=== PATIENT | male | born 1965 | race Caucasian/White ===

== ENCOUNTER 2018-04-24 19:34 | Emergency (ER) | payer BC, OTHER ==
[2018-04-24] MEDS ORDERED: HYDROmorphone 1 MG/ML Syringe IVPUSH ONE (20:03)
[2018-04-24] MEDS ORDERED: Ketorolac 30 MG/ML SDV IVPUSH STA (20:03)
[2018-04-24] MEDS ORDERED: Tamsulosin 0.4 MG Cap.ER PO ONE (20:03)
[2018-04-24] MEDS ORDERED: Ondansetron 4 MG/2 ML SDV IVPUSH ONE (20:03)
--- NOTE | 2018-04-24 20:10 | EDM.PDOC ---
ED HPI GENERAL MEDICAL PROBLEM - General Chief Complaint: Flank Pain Stated Complaint: PAIN IN SIDES Time Seen by Provider: 04/24/18 19:50 Source of Information: Reports: Patient, Family (Mother), RN Notes Reviewed History Limitations: Reports: Uncooperative - History of Present Illness INITIAL COMMENTS - FREE TEXT/NARRATIVE: Obtaining the patient's history was difficult, as the patient did not want to answer questions, and most of my questions were answered by his mother, including questions that she could not possibly know the answer to, such as the character of the patient's pain. According to the patient's mother, the patient developed right flank pain that radiates to his right lower quadrant around 19:10 this evening. The pain came on suddenly. The patient states that he cannot describe the character other than it "just hurts". There do not appear to be any identified modifiers, althought the patient stated that his right flank felt better if he put his hand under his right back while lying supine. No associated fever, nausea, vomiting, constipation, diarrhea, or urinary symptoms, however, the patient's mother states that his urine output has been decreased over the past 45 minutes. No prior similar symptoms. The patient has not taken any over-the- counter home remedies to try to treat his symptoms. The patient does not have a PCP (Mom stated that "He never goes to the doctor") , however, he is under the care of an Oncologist or Radiation Oncologist whose name they do not recall, for treatment of a posterior scalp skin cancer. The lesion was excised, and the patient received radiation therapy. They do not know the type or stage of the cancer. Right Flank Pain Score (Numeric/FACES): 9 - Related Data Allergies Allergy/AdvReac Type Severity Reaction Status Date / Time No Known Allergies Allergy Verified 04/24/18 19:49 Home Meds: Home Meds Acetaminophen/HYDROcodone [Bolivar 325-5 MG] 1 - 2 tab PO Q6H PRN #12 tablet 04/24 [Rx] Ondansetron [Zofran ODT] 1 tab PO Q8H PRN #10 tab.dis 04/24/18 [Rx] Tamsulosin HCl [Flomax] 1 cap PO QPM PRN #5 cap.er.24h 04/24/18 [Rx] Past Medical History Oncologic (Cancer) History: Reports: Other (See Below) (Posterior scalp skin cancer, s/p excision and RTx) - Past Surgical History Oncologic Surgical History: Reports: Other (See Below) (Posterior scalp cancer excised) Social & Family History - Family History Family Medical History: Noncontributory - Tobacco Use Smoking Status *Q: Current Every Day Smoker Years of Tobacco use: 36 Packs/Tins Daily: 0.5 Packs/Tins Daily Comment: Down from 1 ppd - Alcohol Use Alcohol Use History: No - Recreational Drug Use Recreational Drug Use: No - Living Situation & Occupation Living situation: Reports: , with Family (Parents) Occupation: Employed (Maintenance at [employer]) ED ROS GENERAL - Review of Systems Review Of Systems: ROS reveals no pertinent complaints other than HPI. ED EXAM, RENAL/ - Physical Exam Exam: See Below Exam Limited By: No Limitations General Appearance: Alert, WD/WN, Mild Distress (appears to be uncomfortable) Eye Exam: Bilateral Eye: EOMI, Normal Inspection Ears: Normal External Exam, Hearing Grossly Normal Nose: Normal Inspection Throat/Mouth: Normal Inspection, Normal Lips, Normal Voice, No Airway Compromise Head: Atraumatic, Other (posterior scalp alopecia) Neck: Normal Inspection, Full Range of Motion Respiratory/Chest: No Respiratory Distress, Lungs Clear, Normal Breath Sounds, No Accessory Muscle Use Cardiovascular: Normal Peripheral Pulses, Regular Rate, Rhythm, No Edema, No Gallop, No JVD, No Murmur, No Rub GI/Abdominal: Normal Bowel Sounds, Soft, Non-Tender (including the RLQ), No Organomegaly, No Distention, No Abnormal Bruit, No Mass (Male) Exam: Deferred Rectal (Males) Exam: Deferred Back Exam: Normal Inspection, Full Range of Motion. No: CVA Tenderness (L), CVA Tenderness (R) Extremities: Normal Inspection, Normal Range of Motion, No Pedal Edema, Normal Capillary Refill Neurological: Alert, No Motor/Sensory Deficits Psychiatric: Other (Unable to assess) Skin Exam: Warm, Dry, Intact, Normal Color, No Rash Course - Vital Signs Last Recorded V/S: Last Vital Signs Temp 36.6 C 04/24/18 19:49 Pulse 50 L 04/24/18 19:49 Resp 20 04/24/18 19:49 BP 149/98 H 04/24/18 19:49 Pulse Ox 100 04/24/18 19:49 - Orders/Labs/Meds Orders: Active Orders 24 hr Category Date Time Status Strain Urine [RC] ASDIRECTED Care 04/24/18 20:02 Active Abdomen Pelvis wo Cont [CT] Stat Exams 04/24/18 20:03 Taken Sodium Chloride 0.9% [Normal Saline] 1,000 ml Med 04/24/18 20:15 Active IV ASDIRECTED Medication Orders Sodium Chloride (Normal Saline) 1,000 mls @ 150 mls/hr IV ASDIRECTED SARA Last Admin: 04/24/18 20:10 Dose: 150 mls/hr Labs: Laboratory Tests 04/24/18 Range/Units 21:40 Urine Color Yellow (Yellow) Urine Appearance Clear (Clear) Urine pH 8.5 H (5.0-8.0) Ur Specific [place] 1.020 (1.005-1.030) Urine Protein 1+ H (Negative) Urine Glucose (UA) Negative (Negative) Urine Ketones Negative (Negative) Urine Occult Blood Trace-intact H (Negative) Urine Nitrite Negative (Negative) Urine Bilirubin Negative (Negative) Urine Urobilinogen 0.2 (0.2-1.0) Ur Leukocyte Esterase Negative (Negative) Urine RBC 10-20 H (0-5) /hpf Urine WBC 0-5 (0-5) /hpf Ur Epithelial Cells 0-5 (0-5) /hpf Urine Bacteria Few (FEW) /hpf Urine Mucus Moderate H (FEW) /hpf Meds: Medications Generic Name Dose Route Start Last Admin Trade Name Freq PRN Reason Stop Dose Admin Sodium Chloride 1,000 mls @ 150 mls/hr 04/24/18 20:15 04/24/18 20:10 Normal Saline IV 150 mls/hr ASDIRECTED SARA Administration Discontinued Medications Generic Name Dose Route Start Last Admin Trade Name Freq PRN Reason Stop Dose Admin Hydromorphone HCl 1 mg 04/24/18 20:03 04/24/18 20:12 Dilaudid IVPUSH 04/24/18 20:04 1 mg ONETIME ONE Administration Ketorolac Tromethamine 30 mg 04/24/18 20:03 04/24/18 20:12 Toradol IVPUSH 04/24/18 20:04 30 mg ONETIME STA Administration Ondansetron HCl 4 mg 04/24/18 20:03 04/24/18 20:10 Zofran IVPUSH 04/24/18 20:04 4 mg ONETIME ONE Administration Tamsulosin HCl 0.4 mg 04/24/18 20:03 04/24/18 20:12 Flomax PO 04/24/18 20:04 0.4 mg ONETIME ONE Administration - Re-Assessments/Exams Free Text/Narrative Re-Assessment/Exam: 04/24/18 20:13 Based on the patient's history, more than by his physical examination, I suspect a right ureterolith. I ordered a urinalysis and a CT scan of the abdomen and pelvis without IV contrast. In the meantime, the patient will receive IV Dilaudid, oral Flomax, IV fluid, IV Toradol, and IV Zofran. 04/24/18 21:29 CT of the abdomen and pelvis without contrast is read by Juhi as "5 mm right UVJ stone with right hydroureteronephrosis." 04/24/18 22:38 Test results discussed with the patient and his mother. The patient's urinalysis shows RBCs, but no sign of a UTI. At 5 mm, it is possible that the patient will not pass the stone on his own, however, at present, he is feeling very comfortable, suggesting that he may have already passed the stone. I will discharge him home with prescriptions for Bolivar, Flomax, and Zofran, along with a referral to Urology. I would like him to strain his urine, to submit it for analysis should he capture it. Departure - Departure Time of Disposition: 22:41 Disposition: Home, Self-Care 01 Condition: Fair Clinical Impression: Ureterolithiasis - Discharge Information *PRESCRIPTION DRUG MONITORING PROGRAM REVIEWED*: Not Applicable *COPY OF PRESCRIPTION DRUG MONITORING REPORT IN PATIENT LUCIAN: Not Applicable Prescriptions: Acetaminophen/HYDROcodone [Bolivar 325-5 MG] 1 - 2 tab PO Q6H PRN #12 tablet PRN Reason: Pain (Severe 7-10) Ondansetron [Zofran ODT] 1 tab PO Q8H PRN #10 tab.dis PRN Reason: Nausea/Vomiting Tamsulosin HCl [Flomax] 1 cap PO QPM PRN #5 cap.er.24h PRN Reason: Pain Referrals: Dajuan Key MD [Ordering Only Provider] - Forms: ED Department Discharge Additional Instructions: You were seen in the emergency room for sudden-onset right flank pain radiating to your lower right abdomen. Workup in the ER included a urinalysis and a CT scan of your abdomen and pelvis without contrast. The CT scan confirmed that you have a 5 mm stone in your right ureter, just above your bladder. You do not have a urinary tract infection. Based on the size and location of the stone, it is possible that you may not pass it on your own. We recommend that you strain all your urine. If you capture the stone, take it to your doctor for analysis. Stay adequately hydrated. It does not matter what type of fluid you drink. If your pain returns, take [id number] ibuprofen, 2-3 tablets (400-600 mg) every 8 hours, with food, as needed for discomfort. In addition to ibuprofen, you may also take the prescription opioid Bolivar. Take 1 to 2 tablets of Bolivar up to every 6 hours, as needed for pain not relieved by ibuprofen. If you take Bolivar, do not drive or operate heavy machinery for 10 hours afterwards. Bolivar may cause constipation, so consider taking a stool softener. In addition to ibuprofen and Bolivar, you should also take one tablet of the anti- spasm medicine Flomax every evening, starting tomorrow evening, , 2018, as needed for pain. You may dissolve 1 tablet of the anti-nausea medicine Zofran on your tongue up to every 8 hours, as needed for nausea/vomiting. If your pain continues, please follow-up with the Urologist Dr. Dajuan Key, in [place], at the next available appointment. If any other problems, please do not hesitate to return to the ER. - My Orders Last 24 Hours: My Active Orders 04/24/18 20:02 Strain Urine [RC] ASDIRECTED 04/24/18 20:03 Abdomen Pelvis wo Cont [CT] Stat 04/24/18 20:15 Sodium Chloride 0.9% [Normal Saline] 1,000 ml IV ASDIRECTED - Assessment/Plan Last 24 Hours: My Active Orders 04/24/18 20:02 Strain Urine [RC] ASDIRECTED 04/24/18 20:03 Abdomen Pelvis wo Cont [CT] Stat 04/24/18 20:15 Sodium Chloride 0.9% [Normal Saline] 1,000 ml IV ASDIRECTED
[2018-04-24] MEDS ORDERED: Sodium Chloride 0.9% 1,000 ML IV SCH (20:15)
--- NOTE | 2018-04-25 09:59 | CT ---
CT abdomen and pelvis Technique: Multiple axial sections were obtained from above the dome of the diaphragm inferiorly through the pubic symphysis. Intravenous and oral contrast not utilized. Study has been performed as a ureteral stone protocol. Findings: Inflammatory change is noted around the right kidney. Right-sided hydronephrosis and hydroureter is noted down to the UVJ. This finding is caused by an obstructing stone measuring about 5 mm at the right UVJ which projects into the bladder. No other abnormal calcifications are seen along the course of the ureters. Cyst is noted within the lower right kidney measuring 2.5 cm. No abnormal calcifications are seen within the kidneys. Visualized lung bases show mild by basilar atelectasis. Liver has an unremarkable noncontrast CT appearance. Spleen appears within normal limits. Adrenal glands show no nodule. Pancreas is within normal limits. Gallbladder contains no calcified gallstones. Aorta shows no aneurysm. No retroperitoneal adenopathy or mesenteric abnormalities are seen. No pelvic mass or adenopathy is seen. No free fluid or inflammatory change is seen within the pelvis. Appendix felt to be visualized and is normal in size. Bone window settings were reviewed which show degenerative change within the mid and lower lumbar spine with scoliosis. Impression: 1. Findings within the right kidney compatible with distal right ureteral obstruction secondary to 5 mm stone within the distal right UVJ projecting into the bladder. 2. Other incidental findings. Diagnostic code #3 I agree with preliminary report from [facility], finalized on 04/24/18, 10:10 PM Central Time
== END 2018-04-24 22:50 | disposition home or self-care (01) ==
LOC: JD.ED 19:34
DX: N13.2 Hydronephrosis with renal and ureteral calculous obstruction (principal); F17.210 Nicotine dependence, cigarettes, uncomplicated
CPT/HCPCS: 74176; 81001; 96361; 96374; 96375; 99284; A9270; J1170; J1885; J2405; J7040